=== PATIENT | female | born 1975 | race Caucasian/White ===

== ENCOUNTER 2016-09-13 18:15 | Emergency (ER) | payer BC ==
[~2016-09-13] VITALS: Ht 175.3 cm; Wt 106.6 kg
[2016-09-13 20:55] VITALS: BP 141/82
[2016-09-13] MEDS ORDERED: HYDROCODONE/APAP 5/325MG TABLET. PO ONE (22:00)
[2016-09-13 22:14] LABS: BASO % 1 % (0-3); EOS % 2 % (0-3); HEMATOCRIT 40.8 % (36.0-47.0); HEMOGLOBIN 13.5 g/dL (12.0-15.5); LYMPH # 2.4 x10^3/uL (1.0-4.8); LYMPH % 32 % (24-48); MEAN CORPUSCULAR HEMOGLOBIN 30 pg (25-35); MEAN CORPUSCULAR HGB CONC 33 g/dL (31-37); MEAN CORPUSCULAR VOLUME 90 fL (79-100); MONO % 13 % (0-9); NEUT % 53 % (31-73); PLATELET COUNT 228 x10^3/uL (140-400); RED BLOOD COUNT 4.54 x10^6/uL (3.50-5.40); RED CELL DISTRIBUTION WIDTH 13.2 % (11.5-14.5); WHITE BLOOD COUNT 7.5 x10^3/uL (4.0-11.0)
[2016-09-13 22:23] LABS: INR 1.8 (0.8-1.1); PROTHROMBIN TIME PATIENT 19.9 SEC (11.7-14.0)
[2016-09-13 22:37] LABS: CALCIUM 8.6 mg/dL (8.5-10.1); CREATININE 0.8 mg/dL (0.6-1.0); GFR 79.9; POTASSIUM 3.7 mmol/L (3.5-5.1)
[2016-09-13 22:42] LABS: ALBUMIN 3.3 g/dL (3.4-5.0); ALBUMIN/GLOBULIN RATIO 0.8 (1.0-1.7); TOTAL BILIRUBIN 0.2 mg/dL (0.2-1.0); TOTAL PROTEIN 7.5 g/dL (6.4-8.2)
--- NOTE | 2016-09-13 23:26 | RAD ---
PROCEDURE: Right lower extremity venous Doppler ultrasound. HISTORY Patient fell 1 week ago. Right lower extremity swelling x1 day. History of DVT. Patient on Coumadin. COMPARISON None. TECHNIQUE Real-time grayscale, color flow, and Doppler spectral waveform analysis of the deep veins of the lower extremity/ies performed. FINDINGS All visualized vein segments demonstrate normal compressibility and augmentation and color flow. Color flow seen within calf veins. IMPRESSION No evidence of right lower extremity deep vein thrombosis. Electronically signed by: Laurent Brooks MD (Sep 13, 2016 23:25:57)
[2016-09-13] MEDS ORDERED: HYDR-2678 PO (23:55)
--- NOTE | 2016-09-13 23:55 | PHYS DOC ---
Past Medical History Past Medical History: DVT, Other Additional Past Medical Histor: factor 5 gene, excema Past Surgical History: Tubal ligation, Other Additional Past Surgical Histo: endometrial ablation Alcohol Use: None Drug Use: None Adult General Chief Complaint Chief Complaint: LOWER EXT PAIN HPI HPI Patient is a 40 year old female with a history significant for DVT in the past. Patient reports that she's had 2 DVTs first while she was . Patient reports that her second DVT with approximately 6 years ago when she was not and therefore since it was her second DVT she is currently on prolonged warfarin therapy. Patient reports that she does have a history of factor V Leiden. Patient denies any liver longer kidney problems. Patient has any prior pulmonary embolus. Patient has a history of hypertension diabetes coronary disease or CHF. Patient reports that she noticed her right lower extremities swollen today. Patient reports that approximately for 5 days ago she fell after leaving her doctor's office and was at [facility]. She reports that she's had pain in her right knee since however did not notice any swelling until today got concerned. Patient reports that when she went to see her doctor last Sunday they zacarias her INR was 1.8. Patient is currently on 7.5 mg of Coumadin every day. Patient denies any recent fevers shakes chills nausea vomiting diarrhea cough cold runny nose. Patient denies any blood in her stool. Patient denies any melena. Patient has any shortness of breath or hemoptysis. Patient currently is complaining of pain to the lateral aspect of her right knee as well as bruising and swelling to her right calf. Patient's physical exam was significant for swelling to her right lower extremity. There is some bruising laterally around the distal fibular area. Patient has point tenderness to palpation to her right lateral knee. Patient has no ligament laxity. Patient's pulses are intact distally. Patient has good capillary refill. Patient has capillary refill that equal bilaterally in both feet. Patient's pulses are palpable and equal in both feet. Patient's lungs are clear. Heart was regular rate and rhythm. No tachycardia. No split S2/RV he that would be consistent with pulmonary embolism. Patient has no Homans sign. Patient's workup in the ER was unremarkable. Patient has an INR of 1.8. Patient' s ultrasound in the ER revealed no DVT. Patient's x-ray of her right knee revealed no acute fracture. A/P #1 right lower sternal pain and swelling. Given the patient's history of a DVT despite being on Coumadin an ultrasound was ordered. The ultrasound did not reveal any DVT. I discussed with her the limitations of an ultrasound in the ER to rule out definitively a DVT. Patient understands that the swelling persists that she'll need to follow-up with her primary care physician for repeat ultrasound within one week. Given the patient's history of recent trauma the most likely cause of her edema is, to her right knee resulting in swelling edema and bruising. Patient will be discharged home on Lortab to assist her with the pain temporarily until she is able to see her physician this week. Patient is ambulatory. Review of Systems Review of Systems Constitutional: Denies fever or chills [] Eyes: Denies change in visual acuity, redness, or eye pain [] HENT: Denies nasal congestion or sore throat [] All other review systems are negative except as documented in the history of present illness portion Current Medications Current Medications Current Medications Medications (Trade) Dose Ordered Sig/Darlene Start Time Stop Time Status Last Admin Dose Admin Acetaminophen/ Hydrocodone Bitart (Lortab 5/325) 1 tab 1X ONCE 09/13/16 22:00 09/13/16 22:01 DC 09/13/16 21:55 1 TAB Allergies Allergies Allergies Coded Allergies Type Severity Reaction Last Updated Verified No Known Drug Allergies 07/16/13 No Physical Exam Physical Exam Constitutional: Well developed, well nourished, no acute distress, non-toxic appearance. [] HENT: Normocephalic, atraumatic Eyes: PERRLA, EOMI, conjunctiva normal, no discharge. [] Neck: Normal range of motion, no tenderness, supple, no stridor. [] Cardiovascular:Heart rate regular rhythm, Lungs & Thorax: Bilateral breath sounds clear to auscultation [] Abdomen: Bowel sounds normal, soft, no tenderness, no masses, no pulsatile masses. [] Skin: Warm, dry, no erythema, no rash. [] Back: No tenderness, no CVA tenderness. [] Extremities: See above. Neurologic: Alert and oriented X 3, normal motor function, normal sensory function, no focal deficits noted. [] Psychologic: Affect normal, judgement normal, mood normal. [] Current Patient Data Vital Signs Vital Signs Date Time Temp Pulse Resp B/P Pulse Ox O2 Delivery O2 Flow Rate FiO2 09/13/16 21:55 Room Air 09/13/16 20:55 98.0 79 16 141/82 100 98.0 Lab Values Laboratory Tests Test 09/13/16 21:02 09/13/16 22:08 POC Urine HCG, Qualitative Hcg negative (Negative) White Blood Count 7.5x10^3/uL (4.0-11.0) Red Blood Count 4.54x10^6/uL (3.50-5.40) Hemoglobin 13.5g/dL (12.0-15.5) Hematocrit 40.8% (36.0-47.0) Mean Corpuscular Volume 90fL (79-100) Mean Corpuscular Hemoglobin 30pg (25-35) Mean Corpuscular Hemoglobin Concent 33g/dL (31-37) Red Cell Distribution Width 13.2% (11.5-14.5) Platelet Count 228x10^3/uL (140-400) Neutrophils (%) (Auto) 53% (31-73) Lymphocytes (%) (Auto) 32% (24-48) Monocytes (%) (Auto) 13% (0-9) H Eosinophils (%) (Auto) 2% (0-3) Basophils (%) (Auto) 1% (0-3) Neutrophils # (Auto) 4.0x10^3uL (1.8-7.7) Lymphocytes # (Auto) 2.4x10^3/uL (1.0-4.8) Monocytes # (Auto) 1.0x10^3/uL (0.0-1.1) Eosinophils # (Auto) 0.1x10^3/uL (0.0-0.7) Basophils # (Auto) 0.0x10^3/uL (0.0-0.2) Prothrombin Time 19.9SEC (11.7-14.0) H Prothrombin Time INR 1.8 (0.8-1.1) H Sodium Level 142mmol/L (136-145) Potassium Level 3.7mmol/L (3.5-5.1) Chloride Level 107mmol/L (98-107) Carbon Dioxide Level 32mmol/L (21-32) Anion Gap 3 (6-14) L Blood Urea Nitrogen 13mg/dL (7-20) Creatinine 0.8mg/dL (0.6-1.0) Estimated GFR (Cockcroft-Gault) 79.9 BUN/Creatinine Ratio 16 (6-20) Glucose Level 86mg/dL (70-99) Calcium Level 8.6mg/dL (8.5-10.1) Total Bilirubin 0.2mg/dL (0.2-1.0) Aspartate Amino Transferase (AST) 36U/L (15-37) Alanine Aminotransferase (ALT) 56U/L (14-59) Alkaline Phosphatase 118U/L (46-116) H Total Protein 7.5g/dL (6.4-8.2) Albumin 3.3g/dL (3.4-5.0) L Albumin/Globulin Ratio 0.8 (1.0-1.7) L Laboratory Tests 09/13/16 22:08 Laboratory Tests 09/13/16 22:08 EKG EKG [] Radiology/Procedures Radiology/Procedures [] Course & Med Decision Making Course & Med Decision Making Pertinent Labs and Imaging studies reviewed. (See chart for details) [] Dragon Disclaimer Dragon Disclaimer This electronic medical record was generated, in whole or in part, using a voice recognition dictation system. Departure Departure Impression: Primary Impression: Lower extremity injury Additional Impressions: History of DVT (deep vein thrombosis) Anticoagulated Right knee sprain Disposition: 01 HOME, SELF-CARE Condition: IMPROVED Referrals: KAREEN SU MD (PCP) Patient Instructions: Knee Sprain, Owgq-ro-Riss Scripts Hydrocodone/Acetaminophen (Lortab 5-325 mg Tablet)1 Each Tablet1 Tab PO PRN Q6HRS PRN PAIN #14 TAB Prov:YENIFER MEJIA MD 09/13/16 Problem Qualifiers YENIFER MEJIA MD Sep 13, 2016 23:55
--- NOTE | 2016-09-14 08:20 | RAD ---
Three-view right knee radiographs 09/13/2016 Clinical history: Severe right knee pain post fall. AP, lateral and oblique digital radiographs of the right knee were obtained. Moderate to severe degenerative changes are seen involving all 3 compartments of the right knee. No fracture or dislocation is seen. There is no radiographic evidence of a joint effusion. Impression: No fracture or dislocation of the right knee is seen.
== END 2016-09-14 00:10 | disposition home or self-care (01) ==
LOC: ER 18:15
DX: S83.91XA Sprain of unspecified site of right knee, initial encounter (principal); I11.0 Hypertensive heart disease with heart failure; I50.9 Heart failure, unspecified; E11.9 Type 2 diabetes mellitus without complications; M79.89 Other specified soft tissue disorders; Z86.718 Personal history of other venous thrombosis and embolism; Z98.51 Tubal ligation status; Z79.01 Long term (current) use of anticoagulants; Z86.711 Personal history of pulmonary embolism; W19.XXXA Unspecified fall, initial encounter; Y93.89 Activity, other specified; Y92.89 Other specified places as the place of occurrence of the external cause; Y99.8 Other external cause status
CPT/HCPCS: 36415; 73562; 80053; 81025; 85027; 85610; 93971; 99285-25